=== PATIENT | female | born 1995 | race Caucasian/White ===

== ENCOUNTER 2020-04-12 13:36 | Emergency (ER) | payer MEDICAID, SELFPAY ==
[2020-04-12 13:43] VITALS: BP 132/76; PULSE 89; RESP 18; TEMP 36.1; O2SAT 96; BMI 34.2
[2020-04-12 13:48] VITALS: RESP 18
--- NOTE | 2020-04-12 14:40 | ED_ITS ---
HPI - Dental/Oral General: Chief complaint: Dental/Oral Stated complaint: DENTAL PAIN Time Seen by Provider: 04/12/20 13:51 History of Present Illness: MD Complaint: tooth pain Location: Tooth # (Most of teeth in extremely poor dentation. 8-12 are of most source of pain.) Onset (ago): year(s) Duration: intermittent Severity: moderate Severity scale (1-10): 5 Relieving factors: NSAIDs (Only took ibuprofen at 8 am nothing since. ) Exacerbating factors: chewing and cold Context: history of dental caries and poor dental care Associated symptoms: Denies fever(s) Treatment prior to arrival: none Review of Systems General: Reports: 10 or more systems reviewed and unremarkable except in HPI and below Const: Denies: fever(s), chills or body aches Eyes: Denies: change in vision, blurry vision or blind spots ENMT: Reports: dental pain; Denies: throat pain Card: Denies: chest pain or palpitations Resp: Denies: dyspnea or productive cough GI: Denies: abdominal pain : Denies: flank pain PFSH ED PFSH: Family History Other Unknown family medical history Social History Smoking and tobacco status: current every day smoker cigarettes Packs smoked per day: 1 Years cigarettes smoked: 4 [ Other cigarette details: vaped for 5 months ] Second hand smoke exposure: No Alcohol intake: never Substance/Drug Use: never Adopted: Yes Lives independently: Yes Household members: spouse and children Marital status: Current occupational status: unemployed History of recent travel: No Current gender identity: Female Female Reproductive History: Date of last menstrual period: 03/13/20 Physical Exam Const: COMMON NORMALS: no acute distress, average body habitus and patient oriented x3 HENMT: COMMON NORMALS: normocephalic, atraumatic and Normal external nose present HEAD & SCALP: normocephalic and atraumatic FACE & SINUS: normal facial exam and face symmetric NOSE: Normal external nose present MOUTH: Normal oral and palatal mucosa present TEETH & GINGIVA: Yes abnormal tooth and associated gingiva (Very poor dentation over all, along with broken teeth), Yes gingiva abnormal, Yes poor dentition and Yes teeth discoloration Eye: COMMON NORMALS: Equal, round and reactive pupils present GENERAL EYE: appearance normal, both eyes and all related structures PUPIL: Yes Equal, round and reactive pupils present Neck/C-Spine: COMMON NORMALS: full ROM and no lymphadenopathy Lymph: LYMPHATIC: no lymphadenopathy noted Resp: COMMON NORMALS: normal respiratory effort, No retractions, No use of accessory muscles and clear to auscultation bilaterally AUSCULTATION: clear to auscultation bilaterally Cardio: COMMON NORMALS: S1 normal heart sound present and S2 normal heart sound present HEART SOUNDS: S1 normal heart sound present and S2 normal heart sound present GI: COMMON NORMALS: Normal to inspection, nondistended, normoactive bowel sounds present and Soft to palpation PALPATION: Yes Soft to palpation Neuro: COMMON NORMALS: patient oriented x3 Skin: COMMON NORMALS: no rashes or lesions noted GENERAL SKIN EXAM: no rashes or lesions noted Course Vital Signs: Vital signs: Vital Signs Temperature 97.0 F L 04/12/20 13:43 Pulse Rate 89 04/12/20 13:43 Respiratory Rate 18 04/12/20 13:48 Blood Pressure 132/76 04/12/20 13:43 Pulse Oximetry 96 04/12/20 13:43 MDM - Dental/Oral MDM Narrative: Medical decision making narrative: Patient has emergent appointment with [facility]. Will start on amoxicillin today prior to her visit for dental abscess. Discharge Plan Discharge Patient Disposition: Home, Self-Care Clinical Impression: Dental abscess, Dental caries Condition: Stable Prescriptions: New amoxicillin 500 mg tablet 500 mg PO TID 10 Days Qty: 30 RF: 0 No Action No Known Home Medications RF: 0 Referrals: Adebayo Mays MD [Primary Care Provider] - Coding Level of Care Code ED Senior Service Technician for g Balbina
[2020-04-12] MEDS: amoxicillin 500 mg Capsule 1000 MG PO (15:16)
== END 2020-04-12 15:18 | disposition home or self-care (01) ==
PROVIDERS: Emergency Provider Nurse Practitioner Family; PCP Family Medicine
DX: K04.7 Periapical abscess without sinus (principal); K02.9 Dental caries, unspecified; F17.210 Nicotine dependence, cigarettes, uncomplicated
CPT/HCPCS: 12345; 99281; 99282

== ENCOUNTER → 2020-06-30 10:38 | Outpatient (BNVA) | payer MEDICAID, SELFPAY | PROVIDERS: PCP Family Medicine; Referring Provider Nurse Practitioner Family; Visit Provider Podiatrist Foot & Ankle Surgery | DX: M79.672 Pain in left foot (principal) | CPT/HCPCS: 73630 ==

== ENCOUNTER 2021-10-04 22:44 | Emergency (ER) | payer BC, MEDICAID, SELFPAY ==
[2021-10-04 22:50] VITALS: BP 114/76; PULSE 83; RESP 16; TEMP 36.4; O2SAT 99; BMI 31.8
--- NOTE | 2021-10-04 23:00 | ECG_ITS ---
[facility] Test Date: 2021-10-05 Pat Name: Radha Domingo Department: Room: Gender: Female Hematology Technologist: : 1995 Requested By: Rhiannon Granda Order Number: [id number] Tara MD: Mana Wilson M.D. Measurements Intervals [place] Rate: 84 P: 10 MI: 169 QRS: 70 QRSD: 96 T: 19 QT: 344 QTc: 407 Interpretive Statements SINUS RHYTHM No previous ECG available for comparison Electronically Signed On 10-05-2021 20:51:23 WORLD GEOGRAPHY TEACHER by Mana Wilson M.D. [id number]
--- NOTE | 2021-10-04 23:00 | CTR_ITS ---
PROCEDURE INFORMATION: Exam: CT Abdomen And Pelvis With Contrast Exam date and time: 10/04/2021 11:00 PM Age: 25 years old Clinical indication: Abdominal pain; Localized; Left lower quadrant (llq); Patient HX: Onset of llq pain approx. 2 hours ago. ; Additional info: Abd pain TECHNIQUE: Imaging protocol: Computed tomography of the abdomen and pelvis with contrast. Radiation optimization: All CT scans at this facility use at least one of these dose optimization techniques: automated exposure control; mA and/or kV adjustment per patient size (includes targeted exams where dose is matched to clinical indication); or iterative reconstruction. Contrast material: OMNI 300; Contrast volume: 95 ml; Contrast route: INTRAVENOUS (IV); COMPARISON: CT Abdomen/Pelvis Renal [id number] 08/06/2018 1:18 AM RADIATION DOSE METRICS: Total DLP (mGy-cm): 1827.2 FINDINGS: Liver: Normal. No mass. Gallbladder and bile ducts: Normal. No calcified stones. No ductal dilation. Pancreas: Normal. No ductal dilation. Spleen: Normal. No splenomegaly. Adrenal glands: Normal. No mass. Kidneys and ureters: Normal. No hydronephrosis. Stomach and bowel: Unremarkable. No obstruction. No mucosal thickening. Appendix: The appendix is normal. Intraperitoneal space: Unremarkable. No free air. No significant fluid collection. Vasculature: Unremarkable. No abdominal aortic aneurysm. Lymph nodes: Unremarkable. No enlarged lymph nodes. Urinary bladder: Unremarkable as visualized. Reproductive: There is a dominant simple follicle in the right ovary measuring 2.7 cm. Bones/joints: Unremarkable. No acute fracture. Soft tissues: Unremarkable. CT/CT abdomen pelvis w con* [id number] IMPRESSION: 1. No acute findings. 2. Dominant right ovarian follicle
--- NOTE | 2021-10-04 23:04 | W.ED.ABDPA2 ---
HPI - Abdominal Pain General: Chief Complaint: Abdominal Pain Stated Complaint: Pain Right Abd\Passed Out Time Seen by Provider: 10/04/21 22:45 Source: patient Mode of arrival: ambulatory Limitations: no limitations History of Present Illness: HPI narrative: 25-year-old female states that she has been having left lower quadrant pain over the last 1 to 2 hours states pain is been sharp in nature rates it a 6 out of 10 denies any nausea vomiting or diarrhea denies any vaginal bleeding or discharge states that she also had a syncopal episode while she was on the phone with her friend. Denies any chest pain or headache. Associated Symptoms: Reports syncope; Denies chills, dysuria and fever(s) Related Data: Date of Last Menstrual Period: 03/13/20 Review of Systems Const: Denies: fever(s), chills, body aches or change in appetite Eyes: Denies: blurry vision or eye discomfort ENMT: Denies: throat pain or dental pain Card: Reports: syncope Resp: Denies: dyspnea GI: Reports: abdominal pain : Denies: dysuria Musc: Denies: neck pain or back pain Skin/Breast: Denies: rash Neuro: Denies: headache(s) Psych: Denies: depression Colby/Lymph: Denies: easy bruising All/Imm: Denies: urticaria PFSH ED PFSH: Family History Other Unknown family medical history Social History Smoking and tobacco status: current every day smoker cigarettes Packs smoked per day: 1 Years cigarettes smoked: 4 [ Other cigarette details: vaped for 5 months ] Second hand smoke exposure: No Alcohol intake: never Adopted: Yes Lives independently: Yes Household members: spouse and children Marital status: Current occupational status: unemployed History of recent travel: No Current gender identity: Female Female Reproductive History: Date of last menstrual period: 03/13/20 Physical Exam Const: COMMON NORMALS: no acute distress, patient oriented x3 and healthy appearing HENMT: COMMON NORMALS: normocephalic and atraumatic HEAD & SCALP: normocephalic and atraumatic Eye: COMMON NORMALS: Equal, round and reactive pupils present and EOMs intact bilaterally PUPIL: Yes Equal, round and reactive pupils present Neck/C-Spine: COMMON NORMALS: full ROM and supple Chest: COMMONS NORMALS: normal inspection of the chest and normal palpation of entire chest wall Resp: COMMON NORMALS: normal respiratory effort, No retractions, No use of accessory muscles and clear to auscultation bilaterally AUSCULTATION: clear to auscultation bilaterally Cardio: COMMON NORMALS: regular rate, regular rhythm and No murmurs present (Cardio) RATE: regular rate RHYTHM: regular rhythm GI: COMMON NORMALS: Normal to inspection, nondistended, normoactive bowel sounds present, Soft to palpation, non-tender and no masses PALPATION: Yes Soft to palpation and Yes Tenderness to palpation present (GI) Details: LLQ Extremity: COMMON NORMALS: normal to inspection and full ROM Neuro: COMMON NORMALS: patient oriented x3, moves all extremities and no focal motor deficits Psych: COMMON NORMALS: mental status grossly normal, Normal thought process present and cooperative THOUGHT PROCESS: Normal thought process present Skin: COMMON NORMALS: no rashes or lesions noted and no wounds GENERAL SKIN EXAM: no rashes or lesions noted Course Vital Signs: Vital signs: Vital Signs Temperature 97.6 F 10/04/21 22:50 Pulse Rate 83 10/04/21 22:50 Respiratory Rate 16 10/04/21 22:50 Blood Pressure 114/76 10/04/21 22:50 Pulse Oximetry 99 10/04/21 22:50 MDM - Abdominal Pain MDM Narrative: Medical decision making narrative: Patient presents with abdominal pain CT blood work are all normal she also had a syncopal event likely due to her abdominal pain she has no signs of her hemoglobin here is normal she is stable for discharge and return if worsening. Lab Data: Labs: Lab Results 10/04/21 10/04/21 10/04/21 22:52 22:52 23:00 WBC 14.4 10^3/uL H 10 ^3/uL (4.0-10.0) RBC 4.55 10^6/uL 10^6 /uL (4.1-5.3) Hgb 13.1 g/dL g/dL (11.5-15.3) Hct 40.3 % % (37.0-47.0) MCV 88.6 fl fl (81-99) MCH 28.8 pg pg (28.0-34.0) MCHC 32.5 g/dL g/dL (30.0-36.0) RDW 13.6 % % (12.1-15.1) Plt Count 303 10^3/cmm 10^3 /cmm (130-400) MPV 11.7 fL H fL (7.4-10.4) Neut % (Auto) 60.4 % % Lymph % (Auto) 27.9 % % [place] % (Auto) 7.7 % % Eos % (Auto) 3.3 % % Baso % (Auto) 0.4 % % Neut # (Auto) 8.64 10^3/uL H 10 ^3/uL (1.8-7.7) Lymph # (Auto) 4.0 10^3/uL 10^3/ uL (0.8-4.8) Fountain # (Auto) 1.1 10^3/uL H 10^ 3/uL (0.2-0.9) Eos # (Auto) 0.5 10^3/uL 10^3/ uL (0.0-0.8) Baso # (Auto) 0.1 10^3/uL 10^3/ uL (0.0-0.1) Nucleated RBC % (a uto) 0 % % Nucleated RBCs # 0.0 /100WBC /100W BC Sodium Potassium Chloride Carbon Dioxide Anion Gap BUN Creatinine GFR Calculation Glucose Calculated Osmolal ity Calcium Total Bilirubin AST ALT Alkaline Phosphata se Total Protein Albumin Globulin Lipase Urine Color Yellow (Yellow) Urine Appearance Clear (CLEAR) Urine pH 7 (5-7) Ur Specific Gravit y 1.005 (1.005-1.030) Urine Protein Neg (Negative) Urine Glucose (UA) Norm (Normal) Urine Ketones Negative (Negative) Urine Blood Neg (Negative) Urine Nitrate Negative (Negative) Urine Bilirubin Neg (Negative) Urine Urobilinogen Norm mg/dL mg/dL (Negative) Ur Leukocyte Kandi ase Trace H (Negative) Urine RBC 0-4 /hpf H /hpf (0-2) Urine WBC 25-40 /hpf H /hpf (0-5) Ur Squamous Epith Cells 15-25 /hpf H /hpf (0-5) Amorphous Sediment Not Reportable Urine Bacteria 4+ /hpf H /hpf (NONE) Urine HCG, Qual Negative (Negative) 01/02/22 23:00 WBC RBC Hgb Hct MCV MCH MCHC RDW Plt Count MPV Neut % (Auto) Lymph % (Auto) Fountain % (Auto) Eos % (Auto) Baso % (Auto) Neut # (Auto) Lymph # (Auto) Fountain # (Auto) Eos # (Auto) Baso # (Auto) Nucleated RBC % (a uto) Nucleated RBCs # Sodium 141 mmol/L mmol/L (136-145) Potassium 4.0 mmol/L mmol/L (3.5-5.1) Chloride 104 mmol/L mmol/L (98-107) Carbon Dioxide 25 mmol/L mmol/L (22-29) Anion Gap 16.0 (5-19) BUN 8 mg/dL mg/dL (6-20) Creatinine 0.6 mg/dL mg/dL (0.5-0.9) GFR Calculation 123.9 mL/min mL/m in (90-130) Glucose 79 mg/dL mg/dL (65-115) Calculated Osmolal ity 289 mOsm/kg mOsm/ kg (285-295) Calcium 8.8 mg/dL mg/dL (8.5-10.5) Total Bilirubin 0.2 mg/dL mg/dL (0.15-1.2) AST 13 U/L U/L (0-32) ALT 13 U/L U/L (0-33) Alkaline Phosphata se 48 IU/L IU/L (35-105) Total Protein 7.6 g/dL g/dL (6.6-8.7) Albumin 4.4 g/dL g/dL (3.5-5.2) Globulin 3.2 g/dL g/dL (1.3-4.6) Lipase 28 U/L U/L (13-60) Urine Color Urine Appearance Urine pH Ur Specific Gravit y Urine Protein Urine Glucose (UA) Urine Ketones Urine Blood Urine Nitrate Urine Bilirubin Urine Urobilinogen Ur Leukocyte Kandi ase Urine RBC Urine WBC Ur Squamous Epith Cells Amorphous Sediment Urine Bacteria Urine HCG, Qual Discharge Plan Discharge Patient Disposition: Home Clinical Impression: Abdominal pain Qualifiers: Abdominal location: left lower quadrant Qualified Code(s): R10.32 - Left lower quadrant pain Condition: Stable Prescriptions: New dicyclomine 20 mg tablet 20 mg PO TID PRN (Reason: abdominal pain) Qty: 14 RF: 0 No Action amoxicillin-pot clavulanate [Augmentin] 875-125 mg tablet 1 tab PO BID Qty: 14 RF: 0 mupirocin 2 % ointment 1 applic TOPICAL BID Qty: 30 RF: 0 Discharge Orders: Discharge ED (Routine); Ordered 10/04/21 Ordered By: Rhiannon Granda Referrals: Adebayo Mays MD [Primary Care Provider] - 1-3 days Discharge Diet: Advance as tolerated Discharge Activity: Resume usual activity Patient Instructions: Abdominal Pain (ED) Coding Level of Care Code ED Wire Stitcher Machine for Chg Fwd Exam Comprehensive
[2021-10-04 23:19] LABS: Basophils # 0.1 10^3/uL (0.0-0.1); Basophils % 0.4 %; Eosinophils # 0.5 10^3/uL (0.0-0.8); Eosinophils % 3.3 %; Hematocrit 40.3 % (37.0-47.0); Hemoglobin 13.1 g/dL (11.5-15.3); Lymphocytes % 27.9 %; Mean Corpuscular HGB Conc 32.5 g/dL (30.0-36.0); Mean Corpuscular Hemoglobin 28.8 pg (28.0-34.0); Mean Corpuscular Volume 88.6 fl (81-99); Mean Platelet Volume 11.7 fL (7.4-10.4); Monocytes # 1.1 10^3/uL (0.2-0.9); Monocytes % 7.7 %; Neutrophils # 8.64 10^3/uL (1.8-7.7); Neutrophils % 60.4 %; Nucleated Red Blood Cells % 0 %; Platelet Count 303 10^3/cmm (130-400); Red Blood Count 4.55 10^6/uL (4.1-5.3); Red Cell Distribution Width 13.6 % (12.1-15.1); White Blood Count 14.4 10^3/uL (4.0-10.0)
[2021-10-04] MEDS: sodium chloride 0.9% 1,000 ML 999 ML IV (23:22)
[2021-10-04] MEDS: iohexol 300 mg/mL 100 mL Btl IV (23:36)
[2021-10-04 23:41] LABS: Alanine Aminotransferase 13 U/L (0-33); Albumin Level 4.4 g/dL (3.5-5.2); Alkaline Phosphatase 48 IU/L (35-105); Aspartate Amino Transferase 13 U/L (0-32); Blood Urea Nitrogen 8 mg/dL (6-20); Calcium 8.8 mg/dL (8.5-10.5); Carbon Dioxide 25 mmol/L (22-29); Chloride 104 mmol/L (98-107); Globulin 3.2 g/dL (1.3-4.6); Glomerular Filtration Rate 123.9 mL/min (90-130); Glucose 79 mg/dL (65-115); Lipase 28 U/L (13-60); Osmolality Calculated 289 mOsm/kg (285-295); Sodium 141 mmol/L (136-145); Total Bilirubin 0.2 mg/dL (0.15-1.2); Total Protein 7.6 g/dL (6.6-8.7)
[2021-10-04 23:42] LABS: Add Urine Microscopic? YES; Bilirubin Urine Neg (Negative); Blood Urine Neg (Negative); Glucose Urine UA Norm (Normal); Ketones Urine Negative (Negative); Leukocyte Esterase Urine Trace (Negative); Nitrate Urine Negative (Negative); Protein Urine Neg (Negative); Specific Gravity, Urine 1.005 (1.005-1.030); Urine Appearance Clear (CLEAR); Urine Color Yellow (Yellow); Urobilinogen Urine Norm (Negative); pH Urine 7 (5-7)
[2021-10-04 23:43] LABS: Add Urine Culture? No; Bacteria Urine 4+ /hpf; RBC Urine 0-4 /hpf (0-2); Squamous Epithelial Cell Urine 15-25 /hpf (0-5); WBC Urine 25-40 /hpf (0-5)
[2021-10-05 00:48] VITALS: BP 108/72; PULSE 74; RESP 16; O2SAT 99
== END 2021-10-05 00:35 | disposition home or self-care (01) ==
PROVIDERS: Emergency Provider Emergency Medicine; PCP Family Medicine
DX: R10.32 Left lower quadrant pain (principal); F17.210 Nicotine dependence, cigarettes, uncomplicated
CPT/HCPCS: 74177; 80053; 81001; 81025; 83690; 85025; 93005; 96360; 99283; E0352; J7030; Q9967

== ENCOUNTER 2021-10-25 02:58 | Emergency (ER) | payer BC, MEDICAID, SELFPAY ==
[2021-10-25 03:12] VITALS: BP 120/79; PULSE 72; RESP 16; TEMP 36.6; O2SAT 98; BMI 31.8
[2021-10-25 04:01] LABS: Basophils # 0.1 10^3/uL (0.0-0.1); Basophils % 0.5 %; Eosinophils # 0.4 10^3/uL (0.0-0.8); Hematocrit 40.1 % (37.0-47.0); Lymphocytes % 29.9 %; Mean Corpuscular HGB Conc 32.4 g/dL (30.0-36.0); Mean Corpuscular Hemoglobin 28.3 pg (28.0-34.0); Mean Corpuscular Volume 87.2 fl (81-99); Mean Platelet Volume 11.9 fL (7.4-10.4); Monocytes # 1.1 10^3/uL (0.2-0.9); Monocytes % 8.6 %; Neutrophils # 7.62 10^3/uL (1.8-7.7); Neutrophils % 57.6 %; Nucleated Red Blood Cells % 0 %; Platelet Count 278 10^3/cmm (130-400); Red Cell Distribution Width 13.8 % (12.1-15.1); White Blood Count 13.2 10^3/uL (4.0-10.0)
--- NOTE | 2021-10-25 04:03 | ED_ITS ---
HPI - Abdominal Pain General: Chief Complaint: Abdominal Pain Stated Complaint: ABD Pain Time Seen by Provider: 10/25/21 03:26 History of Present Illness: HPI narrative: 26-year-old female presenting with left lower quadrant pain. She says she has had pain for 3 days. She has vomited 3 times in the last 24 hours. No diarrhea, no blood in the stool. No history of belly surgery. Her last known period was 10/11. She says that she had fever earlier. She has had some nasal congestion but no cough. No change in her urine. MD elicited complaint: abdominal pain Onset (ago): day(s) Pain Consistency: constant Location: LLQ Quality: cramping Radiation: none Migration to: no migration Exacerbating factors: nothing Relieving factors: nothing Associated Symptoms: Reports fever(s) and vomiting; Denies change in bowel habits, chills, coffee ground emesis, constipation, diarrhea, dyspepsia, dysuria, hematochezia, hematemesis and melena Related Data: Date of Last Menstrual Period: 03/13/20 Review of Systems Const: Reports: fever(s); Denies: chills ENMT: Reports: nasal congestion Card: Denies: chest pain Resp: Denies: dyspnea, productive cough or non-productive cough GI: Reports: vomiting; Denies: hematemesis, coffee ground emesis, diarrhea, constipation, change in bowel habits, hematochezia or melena : Denies: dysuria [facility] ED PFSH: Family History Other Unknown family medical history Social History Smoking and tobacco status: current every day smoker cigarettes Packs smoked per day: 1 Years cigarettes smoked: 4 [ Other cigarette details: vaped for 5 months ] Second hand smoke exposure: No Alcohol intake: never Adopted: Yes Lives independently: Yes Household members: spouse and children Marital status: Current occupational status: unemployed History of recent travel: No Current gender identity: Female Female Reproductive History: Date of last menstrual period: 03/13/20 Physical Exam Const: GENERAL APPEARANCE: cooperative and well kempt; not frail appearing ORIENTATION/CONSCIOUSNESS: Yes awake, Yes oriented to person, Yes oriented to place and Yes oriented to time HENMT: COMMON NORMALS: normocephalic and atraumatic HEAD & SCALP: normocephalic and atraumatic Eye: COMMON NORMALS: Equal, round and reactive pupils present and EOMs intact bilaterally PUPIL: Yes Equal, round and reactive pupils present Chest: COMMONS NORMALS: normal inspection of the chest Resp: COMMON NORMALS: normal respiratory effort, No use of accessory muscles and clear to auscultation bilaterally AUSCULTATION: clear to auscultation bilaterally Cardio: COMMON NORMALS: regular rate and regular rhythm RATE: regular rate RHYTHM: regular rhythm GI: COMMON NORMALS: Normal to inspection, nondistended, normoactive bowel sounds present and Soft to palpation PALPATION: Yes Soft to palpation and Yes Tenderness to palpation present (GI) Details: LLQ : COMMON NORMALS: Yes no CVA tenderness BLADDER/KIDNEY EXAM: Yes no CVA tenderness Back/Pelvis: COMMON NORMALS: no CVA tenderness Neuro: SENSORIUM/ORIENTATION: Yes oriented to person, Yes oriented to place and Yes oriented to time Psych: APPEARANCE: Yes well kempt Course Vital Signs: Vital signs: Vital Signs Temperature 97.9 F 10/25/21 03:12 Pulse Rate 68 10/25/21 04:13 Respiratory Rate 17 10/25/21 04:13 Blood Pressure 100/66 10/25/21 04:13 Pulse Oximetry 96 10/25/21 04:13 MDM - Abdominal Pain MDM Narrative: Medical decision making narrative: 26-year-old patient CT 2 weeks ago showing a dominant right ovarian follicle. Nothing on the left. White blood cell count is 13, but without left shift. Her CRP is normal. CBC otherwise normal. CMP normal. She has a contaminated urine sample. No leukocyte esterase serum hCG is negative. Pain is improved after medication. Given the fact that she has had a CT within 2 weeks, normal CRP, and no left shift, I am reluctant to reorder CT scan at this point. She will be treated symptomatically. Lab Data: Labs: Lab Results 10/25/21 10/25/21 10/25/21 03:34 03:49 03:49 WBC 13.2 10^3/uL H 10 ^3/uL (4.0-10.0) RBC 4.60 10^6/uL 10^6 /uL (4.1-5.3) Hgb 13.0 g/dL g/dL (11.5-15.3) Hct 40.1 % % (37.0-47.0) MCV 87.2 fl fl (81-99) MCH 28.3 pg pg (28.0-34.0) MCHC 32.4 g/dL g/dL (30.0-36.0) RDW 13.8 % % (12.1-15.1) Plt Count 278 10^3/cmm 10^3 /cmm (130-400) MPV 11.9 fL H fL (7.4-10.4) Neut % (Auto) 57.6 % % Lymph % (Auto) 29.9 % % [place] % (Auto) 8.6 % % Eos % (Auto) 3.0 % % Baso % (Auto) 0.5 % % Neut # (Auto) 7.62 10^3/uL 10^3 /uL (1.8-7.7) Lymph # (Auto) 4.0 10^3/uL 10^3/ uL (0.8-4.8) [place] # (Auto) 1.1 10^3/uL H 10^ 3/uL (0.2-0.9) Eos # (Auto) 0.4 10^3/uL 10^3/ uL (0.0-0.8) Baso # (Auto) 0.1 10^3/uL 10^3/ uL (0.0-0.1) Nucleated RBC % (a uto) 0 % % Nucleated RBCs # 0.0 /100WBC /100W BC Sodium 140 mmol/L mmol/L (136-145) Potassium 3.8 mmol/L mmol/L (3.5-5.1) Chloride 105 mmol/L mmol/L (98-107) Carbon Dioxide 23 mmol/L mmol/L (22-29) Anion Gap 15.8 (5-19) BUN 12 mg/dL mg/dL (6-20) Creatinine 0.7 mg/dL mg/dL (0.5-0.9) GFR Calculation 102.8 mL/min mL/m in (90-130) Glucose 79 mg/dL mg/dL (65-115) Calculated Osmolal ity 289 mOsm/kg mOsm/ kg (285-295) Calcium 8.8 mg/dL mg/dL (8.5-10.5) Total Bilirubin 0.2 mg/dL mg/dL (0.15-1.2) AST 12 U/L U/L (0-32) ALT 13 U/L U/L (0-33) Alkaline Phosphata se 53 IU/L IU/L (35-105) C-Reactive Protein 1.8 mg/L mg/L (0.0-4.9) Total Protein 7.1 g/dL g/dL (6.6-8.7) Albumin 4.5 g/dL g/dL (3.5-5.2) Globulin 2.6 g/dL g/dL (1.3-4.6) Lipase 25 U/L U/L (13-60) HCG, Qual Urine Color Yellow (Yellow) Urine Appearance Sl cloudy A (CLEAR) Urine pH 5 (5-7) Ur Specific Gravit y 1.025 (1.005-1.030) Urine Protein Neg (Negative) Urine Glucose (UA) Norm (Normal) Urine Ketones Negative (Negative) Urine Blood Trace H (Negative) Urine Nitrate Negative (Negative) Urine Bilirubin Neg (Negative) Urine Urobilinogen Norm mg/dL mg/dL (Negative) Ur Leukocyte Kandi ase Negative (Negative) Urine RBC 5-10 /hpf H /hpf (0-2) Urine WBC 15-25 /hpf H /hpf (0-5) Ur Squamous Epith Cells 25-40 /hpf H /hpf (0-5) Amorphous Sediment Not Reportable Urine Bacteria 4+ /hpf H /hpf (NONE) 10/25/21 03:49 WBC RBC Hgb Hct MCV MCH MCHC RDW Plt Count MPV Neut % (Auto) Lymph % (Auto) Stafford % (Auto) Eos % (Auto) Baso % (Auto) Neut # (Auto) Lymph # (Auto) [place] # (Auto) Eos # (Auto) Baso # (Auto) Nucleated RBC % (a uto) Nucleated RBCs # Sodium Potassium Chloride Carbon Dioxide Anion Gap BUN Creatinine GFR Calculation Glucose Calculated Osmolal ity Calcium Total Bilirubin AST ALT Alkaline Phosphata se C-Reactive Protein Total Protein Albumin Globulin Lipase HCG, Qual Negative (Negative) Urine Color Urine Appearance Urine pH Ur Specific Gravit y Urine Protein Urine Glucose (UA) Urine Ketones Urine Blood Urine Nitrate Urine Bilirubin Urine Urobilinogen Ur Leukocyte Kandi ase Urine RBC Urine WBC Ur Squamous Epith Cells Amorphous Sediment Urine Bacteria Discharge Plan Discharge Patient Disposition: Home Clinical Impression: Abdominal pain Qualifiers: Abdominal location: left lower quadrant Qualified Code(s): R10.32 - Left lower quadrant pain Condition: Stable Prescriptions: New Zofran 4 mg tablet 4 mg PO Q6H PRN (Reason: nausea and vomiting) Qty: 10 RF: 0 ketorolac 10 mg tablet 10 mg PO TID PRN (Reason: pain) Qty: 10 RF: 0 No Action amoxicillin-pot clavulanate [Augmentin] 875-125 mg tablet 1 tab PO BID Qty: 14 RF: 0 mupirocin 2 % ointment 1 applic TOPICAL BID Qty: 30 RF: 0 dicyclomine 20 mg tablet 20 mg PO TID PRN (Reason: abdominal pain) Qty: 14 RF: 0 Discharge Orders: Discharge ED (Routine); Ordered 10/25/21 Ordered By: Amish Montalvo Referrals: Adebayo Mays MD [Primary Care Provider] - 4-7 days Patient Instructions: Abdominal Pain (ED) Activity Restrictions/Additional Instructions: Return for fever greater than 100, vomiting liquids or medications despite treatment, worsening pain despite treatment, other concerning symptoms. Coding Level of Care Code ED Epic Cadence Analyst for Ashag Fwd Exam Comprehensive
[2021-10-25 04:05] LABS: Add Urine Microscopic? YES; Bilirubin Urine Neg (Negative); Blood Urine Trace (Negative); Glucose Urine UA Norm (Normal); Ketones Urine Negative (Negative); Leukocyte Esterase Urine Negative (Negative); Nitrate Urine Negative (Negative); Protein Urine Neg (Negative); Specific Gravity, Urine 1.025 (1.005-1.030); Urine Color Yellow (Yellow); Urobilinogen Urine Norm (Negative); pH Urine 5 (5-7)
[2021-10-25] MEDS: ondansetron 2 mg/ML SDV 2 mL 4 MG IVP (04:05)
[2021-10-25 04:07] VITALS: RESP 18; O2SAT 97
[2021-10-25] MEDS: morphine 4 mg/mL SDV 1 mL IVP (04:07)
[2021-10-25 04:10] LABS: Add Urine Culture? No; Bacteria Urine 4+ /hpf; Squamous Epithelial Cell Urine 25-40 /hpf (0-5); WBC Urine 15-25 /hpf (0-5)
[2021-10-25] MEDS: sodium chloride 0.9% 1,000 ML 999 ML IV (04:10)
[2021-10-25 04:11] LABS: HCG, Serum Qual Negative (Negative)
[2021-10-25 04:13] VITALS: BP 100/66; PULSE 68; RESP 17; O2SAT 96
[2021-10-25 04:16] LABS: Alanine Aminotransferase 13 U/L (0-33); Albumin Level 4.5 g/dL (3.5-5.2); Alkaline Phosphatase 53 IU/L (35-105); Anion Gap 15.8 (5-19); Aspartate Amino Transferase 12 U/L (0-32); Blood Urea Nitrogen 12 mg/dL (6-20); C Reactive Protein 1.8 mg/L (0.0-4.9); Calcium 8.8 mg/dL (8.5-10.5); Carbon Dioxide 23 mmol/L (22-29); Chloride 105 mmol/L (98-107); Globulin 2.6 g/dL (1.3-4.6); Glomerular Filtration Rate 102.8 mL/min (90-130); Glucose 79 mg/dL (65-115); Lipase 25 U/L (13-60); Osmolality Calculated 289 mOsm/kg (285-295); Potassium 3.8 mmol/L (3.5-5.1); Sodium 140 mmol/L (136-145); Total Bilirubin 0.2 mg/dL (0.15-1.2); Total Protein 7.1 g/dL (6.6-8.7)
[2021-10-25] MEDS: ketorolac 30 mg/mL INJ 15 MG IVP (05:40)
[2021-10-25 05:43] VITALS: BP 110/52; PULSE 65; RESP 17; O2SAT 97
== END 2021-10-25 05:48 | disposition home or self-care (01) ==
PROVIDERS: Emergency Provider Emergency Medicine; PCP Family Medicine
DX: R10.32 Left lower quadrant pain (principal); F17.210 Nicotine dependence, cigarettes, uncomplicated
CPT/HCPCS: 80053; 81001; 83690; 84703; 85025; 86140; 96361; 96374; 96375; 99283; J1885; J2270; J2405; J7030

== ENCOUNTER 2021-11-05 00:20 | Emergency (ER) | payer BC, MEDICAID, SELFPAY ==
[2021-11-05 00:20] VITALS: BP 149/92; PULSE 89; RESP 18; TEMP 36.3; O2SAT 95; BMI 32.4
--- NOTE | 2021-11-05 00:22 | XRR_ITS ---
PROCEDURE INFORMATION: Exam: XR Lumbosacral Spine Exam date and time: 11/05/2021 12:22 AM Age: 26 years old Clinical indication: Injury or trauma; Fall; Blunt trauma (contusions or hematomas); Patient HX: Patient slipped on ice and fell onto back. C/O of RT sided upper and lower back pain. Lateral views performed with patient on RT side due to left elbow pain. TECHNIQUE: Imaging protocol: XR of the lumbosacral spine. Views: 2 or 3 views. COMPARISON: CT abdomen pelvis w con* [id number] 10/04/2021 11:35 PM FINDINGS: Bones/joints: Normal. No acute fracture. Normal alignment. Soft tissues: Unremarkable. XR/XR lumbar spine 2-3V* [id number] IMPRESSION: No acute findings.
--- NOTE | 2021-11-05 00:22 | XRR_ITS ---
PROCEDURE INFORMATION: Exam: XR Left Elbow Exam date and time: 11/05/2021 12:22 AM Age: 26 years old Clinical indication: Injury or trauma; Fall; Blunt trauma (contusions or hematomas); Patient HX: Patient slipped and fell on ice. Multiple abrasions to left elbow with reduced rom. TECHNIQUE: Imaging protocol: XR Left elbow. Views: 3 or more views. COMPARISON: No relevant prior studies available. FINDINGS: Bones/joints: Normal. Soft tissues: Normal. XR/XR elbow LT min 3V* [id number] IMPRESSION: No acute findings.
--- NOTE | 2021-11-05 00:22 | XRR_ITS ---
PROCEDURE INFORMATION: Exam: XR Thoracic Spine Exam date and time: 11/05/2021 12:22 AM Age: 26 years old Clinical indication: Injury or trauma; Fall; Blunt trauma (contusions or hematomas); Patient HX: Patient slipped on ice and fell onto back. C/O of RT sided upper and lower back pain. Lateral views performed with patient on RT side due to left elbow pain. TECHNIQUE: Imaging protocol: XR of the thoracic spine. Views: 3 views. COMPARISON: CT abdomen pelvis w con* [id number] 10/04/2021 11:35 PM FINDINGS: Bones/joints: Normal. No acute fracture. Normal alignment. Soft tissues: Unremarkable. XR/XR thoracic spine 3V* [id number] IMPRESSION: No acute findings.
--- NOTE | 2021-11-05 00:23 | ED_ITS ---
HPI - Fall General: Chief Complaint: Fall Stated Complaint: fall Time Seen by Provider: 11/05/21 00:20 Source: patient and EMS Mode of arrival: EMS Limitations: no limitations History of Present Illness: 26-year-old female who states that she had walked outside roughly an hour ago on the ice and slipped and fell she states she fell onto her back and her left elbow states she had lumbar thoracic and elbow pain since the fall states pain is a 7 out of 10 worse with movement denies hitting her head denies any loss conscious denies any pain elsewhere Associated symptoms-after fall: Denies abdominal pain, chest pain or headache(s) Review of Systems Const: Denies: fever(s), chills, body aches or change in appetite Eyes: Denies: blurry vision or eye discomfort ENMT: Denies: throat pain or dental pain Card: Denies: chest pain Resp: Denies: dyspnea GI: Denies: abdominal pain, nausea, vomiting or diarrhea : Denies: dysuria Musc: Reports: back pain and extremity pain Skin/Breast: Denies: rash Neuro: Denies: headache(s) Psych: Denies: depression Colby/Lymph: Denies: easy bruising All/Imm: Denies: urticaria PFSH ED PFSH: Family History Other Unknown family medical history Social History Smoking and tobacco status: current every day smoker cigarettes Packs smoked per day: 1 Years cigarettes smoked: 4 [ Other cigarette details: vaped for 5 months] Second hand smoke exposure: No Alcohol intake: never Adopted: Yes Lives independently: Yes Household members: spouse and children Marital status: Current occupational status: unemployed History of recent travel: No Current gender identity: Female Female Reproductive History: Date of last menstrual period: 03/13/20 Physical Exam Const: COMMON NORMALS: no acute distress, patient oriented x3 and healthy appearing HENMT: COMMON NORMALS: normocephalic and atraumatic HEAD & SCALP: normocephalic and atraumatic Eye: COMMON NORMALS: Equal, round and reactive pupils present and EOMs intact bilaterally PUPIL: Yes Equal, round and reactive pupils present Neck/C-Spine: COMMON NORMALS: full ROM and supple Chest: COMMONS NORMALS: normal inspection of the chest and normal palpation of entire chest wall Resp: COMMON NORMALS: normal respiratory effort, No retractions, No use of accessory muscles and clear to auscultation bilaterally AUSCULTATION: clear to auscultation bilaterally Cardio: COMMON NORMALS: regular rate, regular rhythm and No murmurs present (Cardio) RATE: regular rate RHYTHM: regular rhythm GI: COMMON NORMALS: Normal to inspection, nondistended, normoactive bowel sounds present, Soft to palpation, non-tender and no masses PALPATION: Yes Soft to palpation Back/Pelvis: OTHER: tenderness over lumbar and thoracic spine Extremity: NARRATIVE EXTREMITY EXAM: tenderness over left elbow no obvious deformity Neuro: COMMON NORMALS: patient oriented x3, moves all extremities and no focal motor deficits Psych: COMMON NORMALS: mental status grossly normal, Normal thought process present and cooperative THOUGHT PROCESS: Normal thought process present Skin: COMMON NORMALS: no rashes or lesions noted and no wounds GENERAL SKIN EXAM: no rashes or lesions noted Course Vital Signs: Vital signs: Vital Signs Temperature 97.4 F L 11/05/21 00:20 Pulse Rate 89 11/05/21 00:20 Respiratory Rate 18 11/05/21 00:20 Blood Pressure 149/92 11/05/21 00:20 Pulse Oximetry 95 11/05/21 00:20 MDM - Fall Medical Decision Making Patient presents here with back and elbow pain contusions from a fall x-rays are normal she is stable for discharge is to follow-up PCP and return if worsening she is ambulatory here. Did not hit her head or neck Lab Data Radiology Impressions Elbow X-Ray 11/05/21 00:22 IMPRESSION: No acute findings. Lumbar Spine X-Ray 11/05/21 00:22 IMPRESSION: No acute findings. Thoracic Spine X-Ray 11/05/21 00:22 IMPRESSION: No acute findings. Imaging Data xr l spine: I personally reviewed and interpreted this imaging study as follows: My impression: no acute abnormality xr t spine: I personally reviewed and interpreted this imaging study as follows: My impression: no acute abnormality xr L elbow: I personally reviewed and interpreted this imaging study as follows: My impression: no acute abnormality Discharge Plan Discharge Patient Disposition: Home Clinical Impression: Contusion of lower back, Contusion of elbow, left Condition: Stable Prescriptions: New methocarbamol 750 mg tablet 750 mg PO Q6H PRN (Reason: spasms) Qty: 20 0RF Naprosyn 500 mg tablet 500 mg PO BID PRN (Reason: pain) Qty: 20 0RF No Action amoxicillin-pot clavulanate [Augmentin] 875-125 mg tablet 1 tab PO BID Qty: 14 0RF mupirocin 2 % ointment 1 applic TOPICAL BID Qty: 30 0RF dicyclomine 20 mg tablet 20 mg PO TID PRN (Reason: abdominal pain) Qty: 14 0RF Zofran 4 mg tablet 4 mg PO Q6H PRN (Reason: nausea and vomiting) Qty: 10 0RF ketorolac 10 mg tablet 10 mg PO TID PRN (Reason: pain) Qty: 10 0RF Discharge Orders: Discharge ED (Routine); Ordered 11/05/21 Ordered By: Rhiannon Granda Referrals: Adebayo Mays MD [Primary Care Provider] - 1-3 days Discharge Diet: Advance as tolerated Discharge Activity: Resume usual activity Patient Instructions: Contusion in Adults (ED), Back Pain (ED) Coding Level of Care Code ED Data Collection Specialist for Chg Fwd Exam Comprehensive
[2021-11-05] MEDS: HYDROcodone-acetaminophen 7.5-325 mg Tablet 1 TAB PO (00:25)
== END 2021-11-05 01:19 | disposition home or self-care (01) ==
PROVIDERS: Emergency Provider Emergency Medicine; PCP Family Medicine
DX: S30.0XXA Contusion of lower back and pelvis, initial encounter (principal); S50.02XA Contusion of left elbow, initial encounter; F17.210 Nicotine dependence, cigarettes, uncomplicated; W00.0XXA Fall on same level due to ice and snow, initial encounter
CPT/HCPCS: 72072; 72100; 73080; 99283

== ENCOUNTER 2022-04-30 | Outpatient (CLI) | payer BC, MEDICAID, SELFPAY ==
[2022-04-30] VITALS: BMI 32.7
[2022-04-30 00:25] VITALS: BP 118/71; PULSE 98; TEMP 36
[2022-04-30 00:40] VITALS: BP 108/59; PULSE 86
[2022-04-30 00:56] VITALS: RESP 16
[2022-04-30] MEDS: promethazine 25 mg/mL SDV 1 mL IM (01:10)
[2022-04-30 02:20] VITALS: BP 108/59; PULSE 86; RESP 16; TEMP 36
== END 2022-04-30 02:20 | disposition home or self-care (01) ==
LOC: OPOB 00:08 → OBGYN 00:09
PROVIDERS: PCP Family Medicine; Visit Provider Family Medicine
DX: O21.9 Vomiting of pregnancy, unspecified (principal); Z3A.00 Weeks of gestation of pregnancy not specified
CPT/HCPCS: 96372; 99211; J2550

== ENCOUNTER 2022-05-30 16:45 | Outpatient (CLI) | payer BC, MEDICAID, SELFPAY ==
[2022-05-30 17:06] VITALS: BP 117/58; PULSE 77
[2022-05-30 17:22] VITALS: BP 117/60; PULSE 81
[2022-05-30 17:56] VITALS: BMI 34.0
[2022-05-30 18:16] LABS: Bilirubin Urine Neg (Negative); Blood Urine Neg (Negative); Glucose Urine UA Norm (Normal); Ketones Urine 1+ (Negative); Leukocyte Esterase Urine Negative (Negative); Nitrate Urine Negative (Negative); Protein Urine Neg (Negative); Urine Appearance Clear (CLEAR); Urine Color Yellow (Yellow); Urobilinogen Urine Norm (Negative); pH Urine 6 (5-7)
[2022-05-30 18:18] LABS: Bacteria Urine TRACE /hpf; Mucus Urine 1+ /hpf
[2022-05-30 18:19] LABS: Add Urine Culture? No
[2022-05-30 18:49] VITALS: BP 131/67; PULSE 86
[2022-05-30 19:36] VITALS: BP 131/67; PULSE 86
== END 2022-05-30 19:38 | disposition home or self-care (01) ==
LOC: OPOB 16:51 → OBGYN 16:52
PROVIDERS: PCP Family Medicine; Visit Provider Family Medicine
DX: O26.899 Other specified pregnancy related conditions, unspecified trimester (principal); Z3A.00 Weeks of gestation of pregnancy not specified; N89.8 Other specified noninflammatory disorders of vagina
CPT/HCPCS: 81001; 83986; 99211

== ENCOUNTER 2022-06-26 12:27 | Outpatient (CLI) | payer BC, MEDICAID, SELFPAY ==
[2022-06-26 12:27] VITALS: BMI 33.0
[2022-06-26 12:42] VITALS: BP 116/59; PULSE 78; TEMP 35.8; TEMP 36.9
[2022-06-26 13:23] VITALS: BP 116/58; PULSE 79
[2022-06-26 13:43] VITALS: BP 111/63; PULSE 81
[2022-06-26 14:00] VITALS: BP 111/63; PULSE 81; RESP 16; TEMP 36.9
== END 2022-06-26 14:00 | disposition home or self-care (01) ==
LOC: OPOB 12:34 → OBGYN 12:37
PROVIDERS: PCP Family Medicine; Visit Provider Family Medicine
DX: O26.899 Other specified pregnancy related conditions, unspecified trimester (principal); Z3A.00 Weeks of gestation of pregnancy not specified
CPT/HCPCS: 99211

== ENCOUNTER 2022-07-17 21:12 | Outpatient (CLI) | payer BC, MEDICAID, SELFPAY ==
[2022-07-17] VITALS (7 sets, daily range): BP systolic 107–130; BP diastolic 56–63; PULSE 82–108; RESP 17; TEMP 36.1–36.6; BMI 35.2
[2022-07-17 22:12] LABS: Bilirubin Urine Neg (Negative); Blood Urine Neg (Negative); Glucose Urine UA Norm (Normal); Ketones Urine Negative (Negative); Leukocyte Esterase Urine 1+ (Negative); Nitrate Urine Negative (Negative); Protein Urine Neg (Negative); Specific Gravity, Urine 1.005 (1.005-1.030); Urine Appearance SL Hazy (CLEAR); Urine Color Yellow (Yellow); Urobilinogen Urine Neg (Negative); pH Urine 7 (5-7)
[2022-07-17 22:13] LABS: Add Urine Culture? No; Bacteria Urine 1+ /hpf; RBC Urine 0-4 /hpf (0-2); Squamous Epithelial Cell Urine 25-40 /hpf (0-5)
== END 2022-07-17 22:28 | disposition home or self-care (01) ==
LOC: OPOB 21:14 → OBGYN 22:22
PROVIDERS: PCP Family Medicine; Visit Provider Family Medicine
DX: O26.899 Other specified pregnancy related conditions, unspecified trimester (principal); Z3A.00 Weeks of gestation of pregnancy not specified; R10.2 Pelvic and perineal pain
CPT/HCPCS: 59025; 81001; 99211

== ENCOUNTER 2022-07-22 12:34 | Outpatient (CLI) | payer BC, MEDICAID, SELFPAY | END 2022-07-22 13:23 | disposition home or self-care (01) | LOC: OPOB 12:35 → OBGYN 12:36 | PROVIDERS: PCP Family Medicine; Visit Provider Family Medicine | DX: O26.899 Other specified pregnancy related conditions, unspecified trimester (principal); Z3A.00 Weeks of gestation of pregnancy not specified; R10.9 Unspecified abdominal pain | CPT/HCPCS: 59025; 99211 ==

== ENCOUNTER 2022-07-25 11:00 | Outpatient (CLI) | payer BC, MEDICAID, SELFPAY ==
[2022-07-25 11:09] VITALS: RESP 16
[2022-07-25 11:12] VITALS: BMI 34.7
[2022-07-25 11:19] VITALS: BP 123/56; PULSE 98
[2022-07-25 11:33] VITALS: BP 121/60; PULSE 83
[2022-07-25 11:49] VITALS: BP 133/64; PULSE 80
[2022-07-25 12:04] VITALS: BP 115/57; PULSE 80
[2022-07-25 12:05] LABS: Bilirubin Urine Neg (Negative); Blood Urine Neg (Negative); Glucose Urine UA Norm (Normal); Ketones Urine 1+ (Negative); Nitrate Urine Negative (Negative); Protein Urine Trace (Negative); Specific Gravity, Urine 1.005 (1.005-1.030); Urine Appearance SL Hazy (CLEAR); Urine Color Dark Yellow (Yellow); pH Urine 7 (5-7)
[2022-07-25 12:06] LABS: Leukocyte Esterase Urine 1+ (Negative); Urobilinogen Urine 4 mg/dL (Negative)
[2022-07-25 12:07] LABS: Bacteria Urine 2+ /hpf; Squamous Epithelial Cell Urine 15-25 /hpf (0-5)
[2022-07-25 12:08] LABS: Add Urine Culture? No
[2022-07-25 12:09] LABS: Amphetamines Screen Urine Negative (Negative); Barbiturates Screen Urine Negative (Negative); Benzodiazepines Screen Urine Negative (Negative); Cocaine Screen Urine Negative (Negative); Opiate Screen Urine Negative (Negative); PCP Screen Urine Negative (Negative); THC Screen Urine Negative (Negative)
[2022-07-25 12:12] VITALS: BP 121/58; PULSE 75
== END 2022-07-25 12:16 | disposition home or self-care (01) ==
LOC: OPOB 11:03 → OBGYN 11:04
PROVIDERS: PCP Family Medicine; Visit Provider Family Medicine
DX: O46.90 Antepartum hemorrhage, unspecified, unspecified trimester (principal); Z3A.00 Weeks of gestation of pregnancy not specified
CPT/HCPCS: 59025; 80306; 81001; 99211

== ENCOUNTER 2023-05-12 14:50 | Outpatient (CLI) | payer BC, MEDICAID, SELFPAY ==
[2023-05-12 14:50] VITALS: BMI 32.9
[2023-05-12 17:01] VITALS: BP 115/59; PULSE 91; RESP 16; TEMP 36.7; O2SAT 98
== END 2023-05-12 17:18 | disposition home or self-care (01) ==
LOC: OPOB 14:56
PROVIDERS: PCP Family Medicine; Visit Provider Family Medicine
DX: Z29.13 Encounter for prophylactic Rho(D) immune globulin (principal)
CPT/HCPCS: 36415; 36430; 86850; 86900; 90384; 99211

== ENCOUNTER 2023-05-18 11:35 | Outpatient (CLI) | payer BC, MEDICAID, SELFPAY ==
[2023-05-18] VITALS (10 sets, daily range): BP systolic 114–118; BP diastolic 56–58; PULSE 82–94; RESP 18; TEMP 35.8; O2SAT 91–97; BMI 32.9
== END 2023-05-18 12:22 | disposition home or self-care (01) ==
LOC: OPOB 11:45 → OBGYN 11:48
PROVIDERS: PCP Family Medicine; Visit Provider Family Medicine
DX: O26.899 Other specified pregnancy related conditions, unspecified trimester (principal); R60.9 Edema, unspecified; Z3A.00 Weeks of gestation of pregnancy not specified
CPT/HCPCS: 59025; 99211

== ENCOUNTER → 2025-04-22 11:46 | Outpatient (BNVA) | payer OTHER, MEDICAID, SELFPAY | PROVIDERS: PCP Nurse Practitioner Family; Visit Provider Nurse Practitioner Family | DX: R10.11 Right upper quadrant pain (principal) | CPT/HCPCS: 80053; 81003; 81025; 85025 ==

== ENCOUNTER 2025-04-25 13:39 | Outpatient (CLI) | payer MEDICAID, SELFPAY ==
--- NOTE | 2025-04-25 14:00 | US_ITS ---
WS: [id number] RIGHT UPPER QUADRANT ULTRASOUND HISTORY: R10.11 - Right upper quadrant pain COMPARISON: None available. Liver: 14.6 cm in length. Normal size liver and echogenicity. No bile duct dilatation or mass. Portal Vein: Normal hepatopetal flow with monophasic waveform. Gallbladder: Normally distended gallbladder with no stones or wall thickening. CBD: 0.4 cm Pancreas: Normal size and echogenicity. Right kidney: 10.3 cm in length. Normal size and echogenicity. No hydronephrosis or mass. Aorta and IVC: Unremarkable abdominal aorta and IVC. No ascites. US/US gall bladder [id number] IMPRESSION: Normal right upper quadrant ultrasound.
== END 2025-04-25 13:40 | disposition home or self-care (01) ==
LOC: RAD 13:41
PROVIDERS: PCP Nurse Practitioner Family; Visit Provider Nurse Practitioner Family
DX: R10.11 Right upper quadrant pain (principal)
CPT/HCPCS: 76705

== ENCOUNTER 2025-05-27 09:08 | Outpatient (CLI) | payer MEDICAID, SELFPAY ==
--- NOTE | 2025-05-27 10:00 | NM_ITS ---
WS: [id number] NUCLEAR MEDICINE HIDA SCAN WITH GALLBLADDER EJECTION FRACTION HISTORY: R19.8 - Other specified symptoms and signs involving the ... COMPARISON: Gallbladder ultrasound 04/25/2025 TECHNIQUE: The patient was intravenously injected with 7.8 mCi of TC99m Mebrofenin. Immediate imaging over the right upper quadrant was followed by 5 minute image and additional images for a total of 60 minutes. Normal uptake of radiotracer throughout the liver. Activity identified in the gallbladder at 20 minutes and well distended by 60 minutes. Activity in the proximal small bowel was seen by 60 minutes. Good washout of the radiotracer from the liver by 60 minutes. The patient then drank 8 ounces of Ensure Plus. Ejection fraction at 60 minutes was 97%. Normal GB ejection fraction is 35-75%. Post fatty meal symptoms: None. NM/NM hepatobiliary w phar* [id number] IMPRESSION: 1. Normal HIDA scan. 2. Normal gallbladder ejection fraction.
== END 2025-05-27 09:09 | disposition home or self-care (01) ==
LOC: RAD 09:11
PROVIDERS: PCP Nurse Practitioner Family; Visit Provider Nurse Practitioner Family
DX: R19.8 Other specified symptoms and signs involving the digestive system and abdomen (principal)
CPT/HCPCS: 78227; A9537

== ENCOUNTER 2025-06-06 11:54 | Emergency (ER) | payer MEDICAID, SELFPAY ==
--- OUTSIDE RECORDS SUMMARY | 2025-06-06 11:58 | XMS_ITS | Clinical Summary ---
Author Organization [facility] Address [address] García: Epic Prelude ADT [place] [id number] Care Team Providers Care Dermatologist Name Role Phone Adebayo Mays MD Primary Care Provider [phone] Allergies No known active allergies Medications ketorolac tromethamine (TORADOL) 10 mg tablet Take 10 mg by mouth every 4 hours as needed for Pain. Active ondansetron (ZOFRAN) 4 mg Tablet Take 4 mg by mouth every 8 hours as needed for Nausea/Emes is. Active lidocaine (XYLOCAINE) 2 % Solution 5 mL by Mouth/Throa t route every 6 hours as needed for Pain. Swish and spit 60 mL None 11/01/2019 Active traMADoL (ULTRAM) 50 mg tabletIndications :Pain due to dental caries,Dental infection Take 1 Tablet (50 mg) by mouth every 6 hours as needed for Pain. 4 Tablet 0 11/01/2019 Active traMADoL (ULTRAM) 50 mg tabletIndications :Pain due to dental caries,Dental infection Take 1 Tablet (50 mg) by mouth every 6 hours as needed for Pain. 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 Gender Identity Not on file Sexual Orientation Not on file Last Filed Vital Signs Vital Sign Reading Time Taken Comments Blood Pressure 110/63 10/26/2021 5:31 PM CLIENT SERVICE ADMINISTRATOR Pulse 66 10/26/2021 5:28 PM CLIENT SERVICE ADMINISTRATOR Temperature 36.3 C (97.4 F) 10/26/2021 1:29 PM CLIENT SERVICE ADMINISTRATOR Respiratory Rate 18 10/26/2021 1:29 PM CLIENT SERVICE ADMINISTRATOR Oxygen Saturation 99% 10/26/2021 5:28 PM CLIENT SERVICE ADMINISTRATOR Inhaled Oxygen Concentration - - Weight 93.9 kg (207 lb) 10/26/2021 1:29 PM CLIENT SERVICE ADMINISTRATOR Height 170.2 cm (5' 7 ) 10/26/2021 1:29 PM CLIENT SERVICE ADMINISTRATOR Body Mass Index 32.42 10/26/2021 1:29 PM CLIENT SERVICE ADMINISTRATOR Plan of Treatment Health Maintenance Due Date Last Done Comments DTAP/TDAP/TD VACCINES (1 - Tdap) 2016 HEPATITIS B VACCINES (1 of 3 - 19+ 3-dose series) 01/2017 CERVICAL CANCER SCREENING 2018 HPV/Cotest (21-29) 2018 PAP SMEAR 2018 HPV VACCINES (1 - 3-dose SCDM series) 2024 INFLUENZA VACCINE (#1) 2025 Insurance [employer] [place] [employer] Care Teams Dermatologist Relationship Specialty Start Date End Date Adebayo Mays MD [address] [id number] PCP - General Family Practice 10/26/21
[2025-06-06 12:04] VITALS: BP 103/64; PULSE 73; RESP 18; TEMP 36.9; O2SAT 99; BMI 30.4
--- NOTE | 2025-06-06 12:25 | ED_ITS ---
HPI - Abdominal Pain 2 General: Chief Complaint: Abdominal Pain Stated Complaint: right side abd pain Time Seen by Provider: 06/06/25 12:02 Source: patient Mode of arrival: ambulatory Limitations: no limitations History of Present Illness: Patient is a 29-year-old female, current everyday smoker, presenting with right lower quadrant pain that she states she has had since April. Of note, patient recently has had workup for her gallbladder, including right upper quadrant ultrasound as well as a HIDA scan that has ruled out any acute abdominal abnormalities. This HIDA scan was approximately the 9 days ago. She notes that she presents today due to the pain in her right lower quadrant feeling like a popping sensation and stating that she wants to make sure her appendix and lady parts are okay. She is endorsing radiation into the back. She is endorsing nausea vomiting and diarrhea which has also been present since April. Does not report any previous abdominal surgeries. No hematochezia or melena. Does not endorse any changes in her appetite. No dysuria or hematuria. No fevers reported. Does not report any gynecologic history such as ruptured ovarian cysts, ectopic , or tubo-ovarian abscess. Denies possibility of . Her vitals are stable at this time, afebrile. Nontoxic- appearing. MD elicited complaint: abdominal pain Pertinent past history: none Onset (ago): month(s) Pain Consistency: intermittent Location: RLQ Severity: moderate Pain scale (0-10): 4 Quality: stabbing Radiation: back Exacerbating factors: nothing Relieving factors: nothing Associated Symptoms: Reports diarrhea, nausea and vomiting; Denies bloating, chills, constipation, dysuria, fever(s), hematochezia and hematuria Related Data Previous Rx's ?Medication ?Instructions ?Recorded cefdinir 300 mg capsule 300 mg PO BID 7 days #14 cap s 06/06/25 Allergies Allergy/AdvReac Type Severity Reaction Status Date / Time No Known Allergies Allergy Verified 04/22/25 11:14 Review of Systems 2 General: Reports: 10 or more systems reviewed and unremarkable except in HPI and below Const: Denies: fever(s), chills, change in appetite, change in weight or diaphoresis ENMT: Denies: throat pain or hoarseness Card: Denies: chest pain, palpitations or lightheadedness Resp: Denies: dyspnea, productive cough or wheezing GI: Reports: abdominal pain, nausea, vomiting and diarrhea; Denies: constipation, bloating or hematochezia : Denies: flank pain, difficulty voiding, dysuria, urinary frequency, urinary urgency, hematuria, vaginal bleeding, vaginal discharge or pelvic pain Musc: Reports: back pain; Denies: neck pain Skin/Breast: Denies: rash or new lesions Neuro: Denies: headache(s) or dizziness PFSH ED 2 PFSH: Family History Other Unknown family medical history Social History Smoking and tobacco/nicotine status: current every day tobacco/nicotine user (vapes) cigarettes Packs smoked per day: 1 Years cigarettes smoked: 4 [ Other cigarette details: vaped for 5 months] and e-cigarettes Second hand smoke exposure: No Alcohol intake: never Substance/Drug Use: never Adopted: Yes Lives independently: Yes Household members: spouse and children Marital status: Current occupational status: unemployed Current gender identity: Female Physical Exam 2 Const: COMMON NORMALS: no acute distress, patient oriented x3, no limitations, alert and well nourished GENERAL APPEARANCE: cooperative and comfortable O RIENTATION/CONSCIOUSNESS: Yes awake OTHER: Nontoxic-appearing Eye: COMMON NORMALS: Equal, round and reactive pupils present, EOMs intact bilaterally and conjunctivae normal CONJUNCTIVA: Yes conjunctivae normal P UPIL: Yes Equal, round and reactive pupils present Neck/C-Spine: COMMON NORMALS: full ROM, supple, no meningeal signs and no JVD Resp: COMMON NORMALS: normal respiratory effort, No retractions, No use of accessory muscles and clear to auscultation bilaterally AUSCULTATION: clear to auscultation bilaterally, no crackles, no rales, no rhonchi and no wheezes Cardio: COMMON NORMALS: no JVD, regular rate, regular rhythm, No gallops present (Cardio), No clicks present (Cardio), No murmurs present (Cardio), No rub (Cardio) and Peripheral pulses 2+ throughout RATE: regular rate R HYTHM: regular rhythm PERIPHERAL PULSES: Peripheral pulses 2+ throughout GI: COMMON NORMALS: Normal to inspection, nondistended, normoactive bowel sounds present, Soft to palpation, No hepatosplenomegaly present and no masses AUSCULTATION: Yes normoactive bowel sounds PALPATION: Yes Soft to palpation, No Guarding due to palpation present (GI), No Rigid due to palpation and Yes No hepatosplenomegaly present RECTAL EXAM: deferred OTHER: She is endorsing easily reproducible tenderness to palpation diffusely, worse in the right lower quadrant. Negative McBurney's point tenderness. No peritoneal signs. : COMMON NORMALS: Yes no CVA tenderness BLADDER/KIDNEY EXAM: Yes no CVA tenderness Back/Pelvis: COMMON NORMALS: no CVA tenderness Extremity: COMMON NORMALS: normal to inspection and full ROM Neuro: COMMON NORMALS: patient oriented x3, moves all extremities, no focal motor deficits and no sensory deficits noted SENSORIUM/ORIENTATION: Yes alert MENINGEAL SIGNS: Yes no meningeal signs Psych: COMMON NORMALS: mental status grossly normal, cooperative and speech normal SPEECH: Yes normal speech Skin: COMMON NORMALS: no rashes or lesions noted GENERAL SKIN EXAM: no rashes or lesions noted Course 2 Vital Signs: Vital signs: Vital Signs Temperature 98.5 F 06/06/25 12:04 Pulse Rate 73 06/06/25 12:04 Respiratory Rate 18 06/06/25 12:04 Blood Pressure 103/64 06/06/25 12:04 Pulse Oximetry 99 06/06/25 12:04 Oxygen Delivery Me thod Room Air 06/06/25 12:04 MDM - Abdominal Pain Medical Decision Making This patient presented with right lower quadrant abdominal pain, stating it has been going on since April but she felt a popping sensation today that concerned her. Of note, recently had HIDA scan and ultrasound of her right upper quadrant to rule out gallbladder etiology, this was all unremarkable along with blood work that she has obtained with primary care over the past month or so. Nontoxic-appearing on exam with tenderness diffusely, however worse in the right lower quadrant. There were no peritoneal signs, and there seem to be some voluntary guarding. Associated symptoms reported of vomiting and diarrhea, no episodes of this today here in the ED. Vitals have been constantly stable. Her lab work was all reassuring, possible minor urinary tract infection by urinalysis. A scan of her abdomen and pelvis via CT with contrast does not reveal any acute abdominal etiologies, there is commented on some pelvic free fluid that could resemble a ruptured ovarian cyst, that could explain the popping sensation that the patient felt. Also constipation could be contributing to her pain, and the previously mentioned urinary tract infection. She does not present as an acute abdominal/surgical patient and we will treat her urinary tract infection as an outpatient and treat her constipation. She is given general return precautions and told to follow-up with primary care for routine reevaluation and return if worse. Patient agrees with this plan. Lab Data 06/06/25 12:23 06/06/25 12:23 Labs/Radiology: Radiology Impressions Abdomen/Pelvis CT 06/06/25 12:27 IMPRESSION: 1. Normal appendix. 2. Moderate constipation. No GI tract obstruction. 3. Normal aorta. Poorly visualized SMA. Limited contrast opacification of the SMA is probably due to the injection. If there is concern for GI tract ischemia and a CT angiogram can be performed for better opacification of the aorta. 4. There is no GI tract ischemic disease evident. 5. Small amount of free fluid in the pelvis. This is physiologic and probably related to a ruptured ovarian cyst. 6. No renal obstruction. Laboratory Results WBC 11.14 10^3/uL (3.29-11.43) 06/06/25 12:23 RBC 4.73 10^6/uL (3.85-5.65) 06/06/25 12:23 Hgb 12.60 g/dL (11.27-16.99) 06/06/25 12:23 Hct 39.3 % (36-47) 06/06/25 12:23 MCV 83.1 fl (85-98) L 06/06/25 12:23 MCH 26.6 pg (27-33) L 06/06/25 12:23 MCHC 32.1 g/dL (30-55) 06/06/25 12:23 RDW 14.8 % (12.1-15.1) 06/06/25 12:23 Plt Count 269 10^3/cmm (157-399) 06/06/25 12:23 MPV 12.9 fL (7.4-10.4) H 06/06/25 12:23 Neut % (Auto) 61.5 % 06/06/25 12:23 Lymph % (Auto) 28.7 % 06/06/25 12:23 [place] % (Auto) 6.6 % 06/06/25 12:23 Eos % (Auto) 2.5 % 06/06/25 12:23 Baso % (Auto) 0.4 % 06/06/25 12:23 Neut # (Auto) 6.85 10^3/uL (1.8-7.7) 06/06/25 12:23 Lymph # (Auto) 3.2 10^3/uL (0.8-4.8) 06/06/25 12:23 [place] # (Auto) 0.7 10^3/uL (0.2-0.9) 06/06/25 12:23 Eos # (Auto) 0.3 10^3/uL (0.0-0.8) 06/06/25 12:23 Baso # (Auto) 0.1 10^3/uL (0.0-0.1) 06/06/25 12:23 Nucleated RBC % (auto) 0 % 06/06/25 12:23 Nucleated RBCs # 0.0 /100WBC 06/06/25 12:23 Sodium 139 mmol/L (136-145) 06/06/25 12:23 Potassium 4.1 mmol/L (3.5-5.1) 06/06/25 12:23 Chloride 103 mmol/L (98-107) 06/06/25 12:23 Carbon Dioxide 24 mmol/L (22-29) 06/06/25 12:23 Anion Gap 16.1 (5-19) 06/06/25 12:23 BUN 9 mg/dL (6-20) 06/06/25 12:23 Creatinine 0.6 mg/dL (0.5-0.9) 06/06/25 12:23 GFR Calculation 119.9 mL/min (90-130) 06/06/25 12:23 Glucose 91 mg/dL (65-115) 06/06/25 12:23 Calculated Osmolality 286 mOsm/kg (285-295) 06/06/25 12:23 Calcium 9.5 mg/dL (8.5-10.5) 06/06/25 12:23 Total Bilirubin 0.3 mg/dL (0.15-1.2) 06/06/25 12:23 AST 15 U/L (0-32) 06/06/25 12:23 ALT 36 U/L (0-33) H 06/06/25 12:23 Alkaline Phosphatase 54 U/L (35-105) 06/06/25 12:23 Total Protein 8.2 g/dL (6.6-8.7) 06/06/25 12:23 Albumin 4.7 g/dL (3.5-5.2) 06/06/25 12:23 Globulin 3.5 g/dL (1.3-4.6) 06/06/25 12:23 Lipase 21 U/L (13-60) 06/06/25 12:23 HCG, Qual Negative (Negative) 06/06/25 12:23 Urine Color Yellow (Yellow) 06/06/25 12:23 Urine Appearance Cloudy (CLEAR) A 06/06/25 12:23 Urine pH 7.0 (5-7) 06/06/25 12:23 Ur Specific [place] 1.010 (1.005-1.030) 06/06/25 12:23 Urine Protein Negative (Negative) 06/06/25 12:23 Urine Glucose (UA) Negative (Normal) 06/06/25 12:23 Urine Ketones Negative (Negative) 06/06/25 12:23 Urine Blood Negative (Negative) 06/06/25 12:23 Urine Nitrate Negative (Negative) 06/06/25 12:23 Urine Bilirubin Negative (Negative) 06/06/25 12:23 Urine Urobilinogen 1.0 mg/dL (Negative) 06/06/25 12:23 Ur Leukocyte Esterase 1+ (Negative) A 06/06/25 12:23 Urine RBC 0-2 /hpf (0-2) 06/06/25 12:23 Urine WBC 11-20 /hpf (0-5) H 06/06/25 12:23 Ur Squamous Epith Cells 11-20 /hpf (0-5) H 06/06/25 12:23 Amorphous Sediment Not Reportable 06/06/25 12:23 Urine Bacteria 4+ /hpf (NONE) H 06/06/25 12:23 Hyaline Casts 0-4 /lpf H 06/06/25 12:23 All radiology interpretation(s) finalized by discharge Discharge Plan Discharge Patient Disposition: Home Clinical Impression: Urinary tract infection Qualifiers: Urinary tract infection type: acute cystitis Hematuria presence: without hematuria Qualified Code(s): N30.00 - Acute cystitis without hematuria Constipation Qualifiers: Constipation type: unspecified constipation type Qualified Code(s): K59.00 - Constipation, unspecified Condition: Stable Prescriptions: New cefdinir 300 mg capsule 300 mg PO BID 7 Days Qty: 14 0RF Discharge Orders: Discharge ED (Routine); Ordered 06/06/25 Ordered By: Eren Redd Referrals: Soraya Strange FNP [Primary Care Provider, Family Practice] Patient Instructions: Patient Portal & Jose Instructions Activity Restrictions/Additional Instructions: UTI and Constipation Discharge Diagnosis and Treatment Plan: - The patient is a 29-year-old female diagnosed with an uncomplicated urinary tract infection (UTI) and constipation. - She presented with right lower quadrant abdominal pain; acute appendicitis and other acute abdominal etiologies were excluded by computed tomography and reassuring laboratory results. - She is prescribed cefdinir, to be taken twice daily for one week, and MiraLAX (polyethylene glycol) for constipation. Urinary Tract Infection: - Medication: Cefdinir 300 mg orally twice daily for 7 days is a standard regimen for uncomplicated UTI in adults, consistent with current antimicrobial recommendations. Alternative agents were discussed, but cefdinir was selected based on clinical context and antimicrobial stewardship principles. - Instructions: Take cefdinir with or without food. Complete the full course, even if symptoms improve before finishing the medication. - Common Side Effects: Gastrointestinal upset (nausea, diarrhea), headache, or rash. If severe allergic reaction (e.g., difficulty breathing, swelling of face/lips/tongue, hives) occurs, seek emergency care. Constipation: - Medication: MiraLAX (polyethylene glycol 3350) is recommended as a first-line osmotic laxative for chronic and acute constipation, per the [place] [employer] guidelines. Typical dosing is 17 grams (one capful) dissolved in 4-8 ounces of liquid once daily, titrated to effect. - Instructions: Use MiraLAX as directed. Maintain adequate hydration and consider increasing dietary fiber intake as tolerated. Regular physical activity may also improve bowel function. - Common Side Effects: Bloating, flatulence, or mild abdominal discomfort. Serious adverse effects are rare. General Supportive Measures: - Maintain adequate oral hydration. - Monitor for resolution of urinary and bowel symptoms. - Avoid constipation-promoting medications if possible (e.g., opioids, anticholinergics). Return Precautions: - Return to the emergency department or clinic for any of the following: - Persistent or worsening abdominal pain, especially if associated with fever, vomiting, or inability to tolerate oral intake. - New onset of severe back/flank pain, hematuria, or urinary retention. - Signs of systemic infection: fever >38?C, chills, confusion, or hypotension. - Allergic reaction to medications (see above). - No improvement in urinary symptoms after 72 hours of antibiotics. - No bowel movement after 3 days of MiraLAX use, or development of severe abdominal distension. Follow-Up: - Routine outpatient follow-up is recommended if symptoms persist or recur. - If constipation is refractory to MiraLAX, further evaluation for secondary causes or alternative therapies may be warranted. Patient Education: - The diagnosis of UTI and constipation is supported by clinical findings and exclusion of other acute abdominal conditions. - Adherence to prescribed medications and monitoring for adverse effects is essential for optimal recovery. Additional Notes: - The patient was counseled regarding alternative treatment options for both UTI and constipation. - Imaging and laboratory studies excluded acute appendicitis and other surgical abdominal emergencies. 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
--- NOTE | 2025-06-06 12:27 | CT_ITS ---
WS: [id number] CT ABDOMEN AND PELVIS WITH CONTRAST HISTORY: RLQ pain TECHNIQUE: Imaging performed of the abdomen and pelvis with IV contrast. Single phase imaging of the abdomen. Coronal and sagittal reformats are submitted. All CT scans at [facility] use at least one of these dose optimization techniques: automated exposure control; mA and/or kV adjustment per patient size (includes targeted exams where dose is matched to clinical indication); or iterative reconstruction. IV CONTRAST: Omnipaque 350; 100 mL IV. Oral contrast: No DLP: 658.73 mGy.cm COMPARISON: 10/04/2021 Lower thorax: Lung bases are clear. Heart is normal size. No hiatal hernia. Liver/biliary system: Normal size with no intrahepatic dilatation. Gallbladder: Normal. No gallstones or wall thickening. No pericholecystic fluid. Pancreas: Normal size pancreas and pancreatic duct. No adjacent inflammation. Spleen: Normal size spleen. No mass or infarct. Adrenal glands: Normal. Right kidney: Normal. Left kidney: Normal. Aorta: Normal size aorta. Limited opacification of the mesenteric arteries especially the SMV. No ischemic changes in the GI tract. Lymphadenopathy: None. Free fluid: None. GI tract: Normal appendix. No GI tract obstruction. Moderate constipation. Abdominal wall: Unremarkable abdominal wall. No hernia. Pelvis: Small amount of free fluid in the pelvis. The uterus is normal size and midline. There is a small amount of fluid in the endometrial canal. Ovaries are not enlarged. Normal urinary bladder. Bones: Unremarkable. CT/CT abdomen pelvis w con* [id number] IMPRESSION: 1. Normal appendix. 2. Moderate constipation. No GI tract obstruction. 3. Normal aorta. Poorly visualized SMA. Limited contrast opacification of the SMA is probably due to the injection. If there is concern for GI tract ischemia and a CT angiogram can be performed for better opacification of the aorta. 4. There is no GI tract ischemic disease evident. 5. Small amount of free fluid in the pelvis. This is physiologic and probably related to a ruptured ovarian cyst. 6. No renal obstruction.
[2025-06-06 12:38] LABS: Hematocrit 39.3 % (36-47); Hemoglobin 12.60 g/dL (11.27-16.99); Mean Corpuscular HGB Conc 32.1 g/dL (30-55); Mean Corpuscular Hemoglobin 26.6 pg (27-33); Mean Corpuscular Volume 83.1 fl (85-98); Nucleated Red Blood Cells % 0 %; Platelet Count 269 10^3/cmm (157-399); Red Blood Count 4.73 10^6/uL (3.85-5.65); White Blood Count 11.14 10^3/uL (3.29-11.43)
[2025-06-06 12:42] LABS: Glucose Urine UA Negative (Normal); Nitrate Urine Negative (Negative); Specific Gravity, Urine 1.010 (1.005-1.030)
[2025-06-06 12:48] LABS: Add Urine Microscopic? YES
[2025-06-06 12:56] LABS: Alanine Aminotransferase 36 U/L (0-33); Albumin Level 4.7 g/dL (3.5-5.2); Alkaline Phosphatase 54 U/L (35-105); Anion Gap 16.1 (5-19); Aspartate Amino Transferase 15 U/L (0-32); Blood Urea Nitrogen 9 mg/dL (6-20); Calcium 9.5 mg/dL (8.5-10.5); Carbon Dioxide 24 mmol/L (22-29); Chloride 103 mmol/L (98-107); Creatinine Clr Calc Pharmacy 155.2702; Globulin 3.5 g/dL (1.3-4.6); Glucose 91 mg/dL (65-115); Lipase 21 U/L (13-60); Osmolality Calculated 286 mOsm/kg (285-295); Potassium 4.1 mmol/L (3.5-5.1); Sodium 139 mmol/L (136-145); Total Protein 8.2 g/dL (6.6-8.7)
[2025-06-06 12:57] LABS: HCG, Serum Qual Negative (Negative)
[2025-06-06] MEDS: iohexol 350 mg/mL 500 mL Btl (per mL) IV (13:07)
[2025-06-06 13:49] VITALS: BP 105/48; PULSE 66; O2SAT 99
== END 2025-06-06 13:49 | disposition home or self-care (01) ==
PROVIDERS: Emergency Provider Physician Assistant; PCP Nurse Practitioner Family
DX: N30.00 Acute cystitis without hematuria (principal); K59.00 Constipation, unspecified; F17.290 Nicotine dependence, other tobacco product, uncomplicated
CPT/HCPCS: 36415; 74177; 80053; 81001; 83690; 84703; 85025; 87077; 87086; 87186; 99285